=== PATIENT | female | born 1955 | race Caucasian/White ===

== ENCOUNTER 2017-07-12 09:27 | Day surgery (SDC) | payer OTHER ==
--- NOTE | 2017-07-11 13:54 | HISTORY AND PHYSICAL E ---
History and Physical NAME: MARIBEL STONE : 1955 AGE: 62Y ADMITTED: 07/12/2017 ROOM: REFERRING PROVIDER: [facility]. HISTORY OF PRESENT ILLNESS: A 62-year-old female here for colon screen, blood in the stool, hemorrhoids. She did have a colonoscopy at [facility] 10 years ago. PAST MEDICAL AND SURGICAL HISTORY: 1. History of skin cancer. 2. Breast implant. 3. Appendectomy. MEDICATION: 1. Amlodipine. 2. Minocycline. 3. Levothyroxine. 4. Atorvastatin. SOCIAL HISTORY: . She does not smoke, drinks rarely. FAMILY HISTORY: The patient's father had accident, had lung disease. Her mom had CA of the breast and brain. REVIEW OF SYSTEMS: CARDIAC: Hypertension. High cholesterol. ENDOCRINE: Hypothyroid. GASTROINTESTINAL: Hemorrhoids. Colon screening. HEMATOLOGIC/ONCOLOGIC: Cancer of the skin. PHYSICAL EXAMINATION: GENERAL: Pleasant, 62. VITAL SIGNS: Blood pressure 140/90, pulse 70, respirations 18, temp is 98. HEAD, EYES, EARS, NOSE, THROAT: Normal. NECK: Supple. LUNGS: Clear. ABDOMEN: Soft. NEUROLOGIC: Exam negative. CONCLUSION: Colon exam scheduled for day after tomorrow. PLAN: Colonoscopy, 07/12. DICTATING PHYSICIAN: NAS RANDHAWA M.D. [id number] PHY#: [id number] ID: [id number] JOB#: [id number] ACCT: [id number] cc:NAS RANDHAWA M.D. >
[2017-07-12] MEDS ORDERED: LIDOCAINE 2% JELLY 30 ML TUBE ONE (09:32)
[2017-07-12] MEDS ORDERED: NALOXONE HCL INJ/PF 0.4 MG/1 ML SDV ONE (09:33)
[2017-07-12] MEDS ORDERED: GLYCOPYRROLATE INJ 0.4 MG/2 ML VIAL ONE (09:33)
[2017-07-12] MEDS ORDERED: ONDANSETRON HCL INJ/PF 4 MG/2 ML SDV ONE (09:33)
[2017-07-12] MEDS ORDERED: EPINEPHRINE INJ 1 MG/10 ML DISP.SYRIN ONE (09:34)
[2017-07-12] MEDS ORDERED: GLUCAGON,HUMAN RECOMB 1 MG INJ ONE (09:34)
[2017-07-12] MEDS ORDERED: FLUMAZENIL INJ 0.5 MG/5 ML VIAL ONE (09:34)
[2017-07-12] MEDS: MIDAZOLAM 2 MG/2 ML INJ ONE ×3 (10:20→10:32)
[2017-07-12] MEDS: FENTANYL CITRATE INJ/PF 100 MCG/2 ML AMPUL ONE ×2 (10:23→10:28)
[2017-07-12 11:31] LABS: ABSOLUTE EOSINOPHILS # (AUTO) 0.1 10^3/uL (0.0-0.6); ABSOLUTE LYMPHOCYTES (AUTO) 0.9 10^3/uL (0.5-4.7); ABSOLUTE MONOCYTES (AUTO) 0.5 10^3/uL (0.1-1.4); ABSOLUTE NEUT (AUTO) 6.3 10^3/uL (1.7-8.2); BASOPHILS % (AUTO) 0.4 % (0-2); EOSINOPHILS % (AUTO) 1.2 % (0-6); HEMATOCRIT 39.3 % (36.0-47.0); HEMOGLOBIN 13.5 g/dL (12.0-15.5); HGB HCT DIFFERENCE 1.2; MEAN CORPUSCULAR HEMOGLOBIN 31.1 pg (27.0-33.4); MEAN CORPUSCULAR HGB CONC 34.5 g/dL (32.0-36.0); MEAN CORPUSCULAR VOLUME 90 fl (80-97); MONOCYTES % (AUTO) 6.8 % (3-13); RED BLOOD COUNT 4.35 10^6/uL (3.72-5.28); RED CELL DISTRIBUTION WIDTH 13.2 % (11.5-14.0); SEGMENTED NEUTROPHILS % (AUTO) 79.6 % (42-78); WHITE BLOOD COUNT 7.9 10^3/uL (4.0-10.5)
[2017-07-12 11:51] VITALS: BP 121/81
--- NOTE | 2017-07-12 13:30 | OPERATIVE REPORT E ---
Operative Report NAME: MARIBEL STONE : 1955 AGE: 62Y DATE OF SURGERY: 07/12/2017 ROOM: PREOPERATIVE DIAGNOSES: 1. Rectal bleeding. 2. Hemorrhoids. 3. Decreased appetite. POSTOPERATIVE DIAGNOSES: 1. Benign looking anorectal diminutive polyps 1-3 mm in size each. One of them is very close to the anal verge. 2. Mild external hemorrhoids. PROCEDURE: Colonoscopy. SURGEON: NAS RANDHAWA M.D. ANESTHESIA: Versed 3 and fentanyl 50. TISSUE REMOVED OR ALTERED: Biopsy of rectal/anal polyps. PROCEDURE: Rectal exam shows mild external hemorrhoids. Diminutive anorectal polyps benign. Biopsy obtained. Sigmoid descending colon normal. Transverse colon normal. Ascending cecum normal. Patient did have vaginal hysterectomy. The cecum visualized. Moderate amount of stool. Cecum, ascending, transverse, descending, sigmoid all the way to the rectum. CONCLUSION: Diminutive rectal polyps, external hemorrhoids, anal polyps. PLAN: Awaiting biopsy. Consideration for flexible sig after 1 year pending biopsy results. Consider flexible sig for anorectal polyps, external hemorrhoids. DICTATING PHYSICIAN: NAS RANDHAWA M.D. [id number] PHY#: [id number] ID: [id number] JOB#: [id number] ACCT: [id number] cc:[facility] NAS GANNON M.D. >
--- NOTE | 2017-07-12 13:31 | DISCHARGE SUMMARY E ---
Discharge Summary NAME: MARIBEL STONE : 1955 AGE: 62Y ADMITTED: 07/12/2017 DISCHARGED: 07/12/2017 HISTORY: The patient is a 62-year-old female, presented with rectal bleeding. Colonoscopy shows external hemorrhoids and anorectal polyps. PAST SURGICAL HISTORY: The patient did have multiple surgeries: 1. Vaginal hysterectomy. 2. Lumpectomy. 3. Tubal ligation. 4. Appendectomy. 5. Breast augmentation. DISCHARGE PLAN: 1. Soft diet. 2. Hold aspirin. 3. CEA, CBC. 4. Consider followup flexible sigmoid in 1 year pending biopsy results. 5. Awaiting biopsy results. 6. Followup office visit in the next few days. DICTATING PHYSICIAN: NAS RANDHAWA M.D. [id number] [facility]#: [id number] ID: [id number] JOB#: [id number] ACCT: [id number] cc:[facility] NAS RANDHAWA M.D. >
== END 2017-07-12 11:57 | disposition home or self-care (01) ==
LOC: END 09:27
PROVIDERS: ATTEND Specialist
PROC: 0DBP8ZX Excision of Rectum, Via Natural or Artificial Opening Endoscopic, Diagnostic (ICD-10-PCS; principal; 2017-07-12 10:00)
DX: Z12.11 Encounter for screening for malignant neoplasm of colon (principal); K63.5 Polyp of colon; K44.9 Diaphragmatic hernia without obstruction or gangrene; K62.0 Anal polyp; I10 Essential (primary) hypertension; E03.9 Hypothyroidism, unspecified; R63.0 Anorexia; Z79.899 Other long term (current) drug therapy; Z85.828 Personal history of other malignant neoplasm of skin
CPT/HCPCS: 45380; 36415; 82378; 85025; 88305 ×2; J2250; J3010; J1610; J2405; J0171; J2310; J3490